=== PATIENT | male | born 1970 | race American Indian/Alaskan Native ===

== ENCOUNTER 2018-02-18 21:00 | Emergency (ER) | payer SELFPAY ==
[2018-02-18 21:15] VITALS: BP 179/98
[2018-02-18] MEDS ORDERED: ASPIRIN PO ONE (21:15)
[2018-02-18 21:33] LABS: Basophils % (Auto) 0.8 % (0.0-1.8); Eosinophils # (Auto) 0.1 K/mm3 (0.0-0.4); Eosinophils % (Auto) 2.3 % (0.0-4.3); Hematocrit 34.8 % (35.5-45.6); Hemoglobin 11.3 gm/dl (11.8-15.2); Lymphocytes # (Auto) 1.5 K/mm3 (1.2-5.4); Lymphocytes % (Auto) 23.9 % (13.4-35.0); Mean Corpuscular HGB Conc 32 % (32-34); Mean Corpuscular Hemoglobin 27 pg (28-32); Mean Corpuscular Volume 84 fl (84-94); Monocytes # (Auto) 0.5 K/mm3 (0.0-0.8); Monocytes % (Auto) 7.5 % (0.0-7.3); Platelet Count 185 K/mm3 (140-440); Red Blood Count 4.13 M/mm3 (3.65-5.03); Red Cell Distribution Width 14.6 % (13.2-15.2)
[2018-02-18 21:58] LABS: Calcium 8.8 mg/dL (8.4-10.2)
[2018-02-18 22:05] LABS: Bilirubin,Urine NEG (Negative); Blood,Urine MOD (Negative); Color,Urine Yellow (Yellow); Mucus,Urine FEW /HPF; Urobilinogen,Urine < 2.0 mg/dL (<2.0)
[2018-02-18 22:18] LABS: Chol/HDL Ratio 7.26 %
--- NOTE | 2018-02-21 14:38 | ED Elopement Review ---
ED Pt Elopement review - Results review Lab results: Laboratory Tests 02/18/18 02/18/18 02/18/18 21:17 21:17 21:31 WBC 6.1 RBC 4.13 Hgb 11.3 L Hct 34.8 L MCV 84 MCH 27 L MCHC 32 RDW 14.6 Plt Count 185 Lymph % (Auto) 23.9 [place] % (Auto) 7.5 H Eos % (Auto) 2.3 Baso % (Auto) 0.8 Lymph # 1.5 [place] # 0.5 Eos # 0.1 Baso # 0.0 Seg Neutrophils % 65.5 Seg Neutrophils # 4.0 Sodium 138 Potassium 4.2 Chloride 98.3 Carbon Dioxide 27 Anion Gap 17 BUN 25 H Creatinine 1.8 H Estimated GFR 50 BUN/Creatinine Ratio 14 Glucose 214 H Calcium 8.8 Troponin T 0.048 H Triglycerides 301 H Cholesterol 298 H LDL Cholesterol Direct 186 H HDL Cholesterol 41 Cholesterol/HDL Ratio 7.26 Urine Color Yellow Urine Turbidity Clear Urine pH 5.0 Ur Specific [place] 1.017 Urine Protein 100 mg/dl Urine Glucose (UA) 50 Urine Ketones Neg Urine Blood Mod Urine Nitrite Neg Urine Bilirubin Neg Urine Urobilinogen < 2.0 Ur Leukocyte Esterase Neg Urine WBC (Auto) 3.0 Urine RBC (Auto) 9.0 Urine Mucus Few - Call Back decision Pt Call Back Decision: Call pt to return to ED [facility]
== END 2018-02-18 21:31 | disposition left against medical advice (07) ==
LOC: ED 21:00
DX: R07.9 Chest pain, unspecified (principal); Z53.21 Procedure and treatment not carried out due to patient leaving prior to being seen by health care provider
CPT/HCPCS: 36415; 80048; 80061; 81001; 84484; 85025; 93005; 93010

== ENCOUNTER 2018-11-20 03:34 | Inpatient (IN) | payer OTHER ==
[2018-11-20 03:56] LABS: Basophils # (Auto) 0.1 K/mm3 (0.0-0.1); Basophils % (Auto) 1.1 % (0.0-1.8); Eosinophils # (Auto) 0.6 K/mm3 (0.0-0.4); Eosinophils % (Auto) 10.3 % (0.0-4.3); Hematocrit 34.6 % (35.5-45.6); Hemoglobin 11.5 gm/dl (11.8-15.2); Lymphocytes # (Auto) 1.2 K/mm3 (1.2-5.4); Lymphocytes % (Auto) 20.9 % (13.4-35.0); Mean Corpuscular HGB Conc 33 % (32-34); Mean Corpuscular Volume 83 fl (84-94); Monocytes # (Auto) 0.5 K/mm3 (0.0-0.8); Monocytes % (Auto) 8.3 % (0.0-7.3); Platelet Count 150 K/mm3 (140-440); Red Blood Count 4.19 M/mm3 (3.65-5.03); Red Cell Distribution Width 15.7 % (13.2-15.2)
[2018-11-20] MEDS ORDERED: NITRO-BID 2% TP ONE ×2 (03:56→04:00)
--- NOTE | 2018-11-20 03:58 | XRay Report ---
FINAL REPORT EXAM: XR CHEST 1V AP HISTORY: Chest Pain TECHNIQUE: A portable upright view the chest was obtained. FINDINGS: There are sternotomy sutures. The heart size is normal. There are no infiltrates or congestion. Pleur al fluid is not seen. The bones and soft tissues are well maintained. IMPRESSION: No acute cardiopulmonary process.
[2018-11-20 04:08] LABS: INR 0.9 (0.87-1.13)
--- NOTE | 2018-11-20 04:08 | Emergency Department Report ---
ED Chest Pain HPI - General Chief Complaint: Chest Pain Stated Complaint: CHEST PAIN/HIGH BP Time Seen by Provider: 11/20/18 03:39 Source: patient, EMS, old records reviewed (patient was admitted here in April 2018 with pneumonia and chest pain. He is subsequently transferred to family for CABG after Cardiac cath) Mode of arrival: Stretcher Limitations: No Limitations - History of Present Illness Initial Comments: 47-year-old male with a past medical history sarcoidosis, CHF, diabetes, CABG 2, hypertension, and renal insufficiency presents to the hospital complaining of chest pain 3 days. Patient complains of intermittent left-sided throbbing c hest pain became more constant today. Rate is 6/10 intensity. Wrist with movement and palpation. Patient has had a cough for several days. Productive white sputum with associated wheezing/sob. No reports of fever, calf tenderness, or leg edema. Patient is currently incarcerated. He received an aspirin at the prison and 2 nitroglycerin in route to the hospital. Severity scale (0 -10): 9 - Related Data Previous Rx's Medication Instructions Recorded Last Taken Type ALBUTEROL NEB's [Proventil 0.083% 2.5 mg IH Q4HRT PRN #30 nebu 05/08/18 Unknown Rx NEBS] Acetaminophen [Acetaminophen TAB] 650 mg PO Q4H PRN #30 tablet 05/08/18 Unknown Rx Aspirin [Aspirin TAB] 325 mg PO QDAY #30 tablet 05/08/18 Unknown Rx AtorvaSTATin [Lipitor] 80 mg PO QHS #30 tablet 05/08/18 Unknown Rx Clopidogrel [Plavix] 75 mg PO QDAY #30 tablet 05/08/18 Unknown Rx Enoxaparin [Lovenox] 40 mg SUB-Q QHS #30 syringe 05/08/18 Unknown Rx Ezetimibe [Zetia] 10 mg PO QDAY #30 tablet 05/08/18 Unknown Rx ISOSORBIDE MONOnitrate [Imdur ER] 60 mg PO QDAY #30 tablet 05/08/18 Unknown Rx Lispro Insulin [Humalog] 0 unit SUB-Q Q6HR units 05/08/18 Unknown Rx Metoprolol [Lopressor TAB] 100 mg PO BID #60 tablet 05/08/18 Unknown Rx amLODIPine [Norvasc] 10 mg PO QDAY #30 tablet 05/08/18 Unknown Rx hydrALAZINE [Apresoline TAB] 50 mg PO Q8HR #90 tablet 05/08/18 Unknown Rx methylPREDNISolone Sod Suc 60 mg IV Q8HR #1 vial 05/08/18 Unknown Rx [Solu-MEDROL] Allergies Allergy/AdvReac Type Severity Reaction Status Date / Time No Known Allergies Allergy Verified 02/19/18 01:25 Heart Score - HEART Score History: Slightly suspicious EKG: Non-specific Age: 45-65 Risk factors: > 3 risk factors or hx of atherosclerotic disease Troponin: 1-3x normal limit HEART Score: 5 ED Review of Systems ROS: Stated complaint: CHEST PAIN/HIGH BP Other details as noted in HPI ED Past Medical Hx - Past Medical History Hx Hypertension: Yes Hx Heart Attack/AMI: Yes (2015 4 stents) Hx Congestive Heart Failure: No Hx Diabetes: Yes Hx Asthma: No Hx COPD: No Additional medical history: sarcodosis - Surgical History Hx Coronary Stent: Yes (2015) Additional Surgical History: 4 stents 2015, hemorrhage retinal bilateral - Social History Smoking Status: Smoker, Current Status Unknown - Medications Home Medications: Home Medications Medication Instructions Recorded Confirmed Last Taken Type ALBUTEROL NEB's [Proventil 0.083% 2.5 mg IH Q4HRT PRN #30 nebu 05/08/18 Unknown Rx NEBS] Acetaminophen [Acetaminophen TAB] 650 mg PO Q4H PRN #30 tablet 05/08/18 Unknown Rx Aspirin [Aspirin TAB] 325 mg PO QDAY #30 tablet 05/08/18 Unknown Rx AtorvaSTATin [Lipitor] 80 mg PO QHS #30 tablet 05/08/18 Unknown Rx Clopidogrel [Plavix] 75 mg PO QDAY #30 tablet 05/08/18 Unknown Rx Enoxaparin [Lovenox] 40 mg SUB-Q QHS #30 syringe 05/08/18 Unknown Rx Ezetimibe [Zetia] 10 mg PO QDAY #30 tablet 05/08/18 Unknown Rx ISOSORBIDE MONOnitrate [Imdur ER] 60 mg PO QDAY #30 tablet 05/08/18 Unknown Rx Lispro Insulin [Humalog] 0 unit SUB-Q Q6HR units 05/08/18 Unknown Rx Metoprolol [Lopressor TAB] 100 mg PO BID #60 tablet 05/08/18 Unknown Rx amLODIPine [Norvasc] 10 mg PO QDAY #30 tablet 05/08/18 Unknown Rx hydrALAZINE [Apresoline TAB] 50 mg PO Q8HR #90 tablet 05/08/18 Unknown Rx methylPREDNISolone Sod Suc 60 mg IV Q8HR #1 vial 05/08/18 Unknown Rx [Solu-MEDROL] ED Physical Exam - General Limitations: No Limitations ED Course Vital Signs 11/20/18 11/20/18 11/20/18 03:35 03:37 03:48 Temperature 97.7 F Pulse Rate 84 80 84 Respiratory 13 16 Rate Blood Pressure 187/103 Blood Pressure 187/103 177/93 [Right] O2 Sat by Pulse 99 100 Oximetry 11/20/18 11/20/18 11/20/18 03:59 04:00 04:30 Temperature Pulse Rate 84 78 82 Respiratory 14 15 Rate Blood Pressure 177/93 177/93 155/90 Blood Pressure [Right] O2 Sat by Pulse 100 100 Oximetry 11/20/18 04:34 Temperature Pulse Rate 82 Respiratory 15 Rate Blood Pressure Blood Pressure 155/90 [Right] O2 Sat by Pulse 99 Oximetry MARIA LUISA score - Maria Luisa Score Age > 65: (0) No Aspirin use within the Past 7 Days: (1) Yes 3 or more CAD Risk Factors: (1) Yes 2 or more Angina events in past 24 hrs: (1) Yes Known CAD with more than 50% Stenosis: (0) No Elevated Cardiac Markers: (1) Yes ST Deviation Greater than 0.5mm: (0) No MARIA LUISA Score: 4 ED Medical Decision Making - Lab Data Result diagrams: 11/20/18 03:44 11/20/18 03:44 Lab Results 11/20/18 11/20/18 11/20/18 Range/Units 03:44 03:44 03:44 WBC 5.6 (4.5-11.0) K/mm3 RBC 4.19 (3.65-5.03) M/mm3 Hgb 11.5 L (11.8-15.2) gm/dl Hct 34.6 L (35.5-45.6) % MCV 83 L (84-94) fl MCH 28 (28-32) pg MCHC 33 (32-34) % RDW 15.7 H (13.2-15.2) % Plt Count 150 (140-440) K/mm3 Lymph % (Auto) 20.9 (13.4-35.0) % [place] % (Auto) 8.3 H (0.0-7.3) % Eos % (Auto) 10.3 H (0.0-4.3) % Baso % (Auto) 1.1 (0.0-1.8) % Lymph # 1.2 (1.2-5.4) K/mm3 [place] # 0.5 (0.0-0.8) K/mm3 Eos # 0.6 H (0.0-0.4) K/mm3 Baso # 0.1 (0.0-0.1) K/mm3 Seg Neutrophils % 59.4 (40.0-70.0) % Seg Neutrophils # 3.3 (1.8-7.7) K/mm3 PT 12.5 (12.2-14.9) Sec. INR 0.90 (0.87-1.13) APTT 23.9 L (24.2-36.6) Sec. Sodium 138 (137-145) mmol/L Potassium 5.1 H (3.6-5.0) mmol/L Chloride 102.5 (98-107) mmol/L Carbon Dioxide 26 (22-30) mmol/L Anion Gap 15 mmol/L BUN 18 (9-20) mg/dL Creatinine 1.7 H (0.8-1.5) mg/dL Estimated GFR 53 ml/min BUN/Creatinine Ratio 11 % Glucose 152 H (75-100) mg/dL Calcium 9.0 (8.4-10.2) mg/dL Troponin T 0.056 H (0.00-0.029) ng/mL Triglycerides 97 (2-149) mg/dL Cholesterol 80 (50-199) mg/dL LDL Cholesterol Direct 28 L (50-130) mg/dL HDL Cholesterol 35 L (40-59) mg/dL Cholesterol/HDL Ratio 2.28 % - EKG Data -: EKG Interpreted by Me EKG shows normal: sinus rhythm (80), ST-T waves (no stemi) - EKG Data When compared to previous EKG there are: no significant change - Medical Decision Making I suspect the patient's pain is muscular skeletal in nature and intermittent shortness of breath related to wheezes and sarcoidosis. No infiltrate on chest x-ray. Patient has mild troponin elevation likely secondary to chronic renal insufficiency indicated stable compared to baseline. EKG does not show any acute changes. Given his significant cardiac history he'll be admitted to hospital for further workup and observation - Differential Diagnosis sarcoidosis, musculoskeletal pain, [place], pneumonia Critical Care Time: No Critical care attestation.: If time is entered above; I have spent that time in minutes in the direct care of this critically ill patient, excluding procedure time. ED Disposition Clinical Impression: Chest pain, Cough, Sarcoidosis, Uncontrolled hypertension, CRI (chronic renal insufficiency) Disposition: OP ADMIT IP TO THIS HOSP Is pt being admited?: Yes Condition: Stable Time of Disposition: 04:41 (Dr Salazar/hosp)
[2018-11-20 04:09] LABS: Partial Thromboplastin Time 23.9 Sec. (24.2-36.6)
[2018-11-20 04:52] LABS: Chol/HDL Ratio 2.28 %
[2018-11-20] MEDS ORDERED: APRESOLINE IV ONE (05:43)
[2018-11-20] MEDS ORDERED: PERCOCET 5/325 PO PRN (06:04)
[2018-11-20] MEDS ORDERED: D50W (25GM) Syringe IV PRN (06:04)
[2018-11-20] MEDS ORDERED: TYLENOL PO PRN (06:04)
[2018-11-20] MEDS ORDERED: SODIUM CHLORIDE FLUSH SYRINGE 10 ML IV PRN (06:04)
[2018-11-20] MEDS ORDERED: ZOFRAN IV PRN (06:04)
--- NOTE | 2018-11-20 06:08 | History and Physical Report ---
History of Present Illness Date of examination: 11/20/18 History of present illness: 47-year-old man with a history of hypertension, coronary artery disease, diabetes, sarcoidosis comes emergency room with complaints of chest pain that started Sunday Pain is in the left chest and epigastric area which he describes a throbbing pain constant, intensity 5/10, no radiation, relief with pain medication given in the ER. Admits to diaphoresis , palpitation, no shortness of breath, nausea. Review of systems Constitutional: no weight loss, chills, fever Ears, eyes, nose, mouth and throat: no nasal congestion, no nasal discharge, no sinus pressure, no vision change, no red eye. Neck: No neck pain or rigidity. Cardiovascular: +palpitations Respiratory: no cough, shortness of breath Gastrointestinal: no abdominal pain hematochezia Genitourinary : no frequency , no hematuria Musculoskeletal: no joint swelling or muscle ache Integumentary: no rash, no pruritis Neurological: no parathesias, no numbness, no focal weakness Endocrine: no cold or heat intolerance, no polyuria or polydipsia Hematologic/Lymphatic: no easy bruising, no easy bleeding, no gland swelling Allergic/Immunologic: no urticaria, no angioedema. PAST MEDICAL HISTORY: hypertension, coronary artery disease, diabetes, sarcoidosis PAST SURGICAL HISTORY: CABG SOCIAL HISTORY: Denies alcohol, tobacco, drugs FAMILY HISTORY: Hypertension Medications and Allergies Allergies Allergy/AdvReac Type Severity Reaction Status Date / Time No Known Allergies Allergy Verified 02/19/18 01:25 Home Medications Medication Instructions Recorded Confirmed Last Taken Type ALBUTEROL NEB's [Proventil 0.083% 2.5 mg IH Q4HRT PRN #30 nebu 05/08/18 Unknown Rx NEBS] Acetaminophen [Acetaminophen TAB] 650 mg PO Q4H PRN #30 tablet 05/08/18 Unknown Rx Aspirin [Aspirin TAB] 325 mg PO QDAY #30 tablet 05/08/18 Unknown Rx AtorvaSTATin [Lipitor] 80 mg PO QHS #30 tablet 05/08/18 Unknown Rx Clopidogrel [Plavix] 75 mg PO QDAY #30 tablet 05/08/18 Unknown Rx Enoxaparin [Lovenox] 40 mg SUB-Q QHS #30 syringe 05/08/18 Unknown Rx Ezetimibe [Zetia] 10 mg PO QDAY #30 tablet 05/08/18 Unknown Rx ISOSORBIDE MONOnitrate [Imdur ER] 60 mg PO QDAY #30 tablet 05/08/18 Unknown Rx Lispro Insulin [Humalog] 0 unit SUB-Q Q6HR units 05/08/18 Unknown Rx Metoprolol [Lopressor TAB] 100 mg PO BID #60 tablet 05/08/18 Unknown Rx amLODIPine [Norvasc] 10 mg PO QDAY #30 tablet 05/08/18 Unknown Rx hydrALAZINE [Apresoline TAB] 50 mg PO Q8HR #90 tablet 05/08/18 Unknown Rx methylPREDNISolone Sod Suc 60 mg IV Q8HR #1 vial 05/08/18 Unknown Rx [Solu-MEDROL] Active Meds: Active Medications Acetaminophen (Tylenol) 650 mg PO Q4H PRN PRN Reason: Pain MILD(1-3)/Fever >100.5/TOLLIVER Dextrose (D50w (25gm) Syringe) 50 ml IV PRN PRN PRN Reason: Hypoglycemia Enoxaparin Sodium (Lovenox) 30 mg SUB-Q QDAY [facility] Insulin Human Lispro (Humalog) 0 unit SUB-Q ACHS [facility]; Protocol Ondansetron HCl (Zofran) 4 mg IV Q8H PRN PRN Reason: Nausea And Vomiting Oxycodone/Acetaminophen (Percocet 5/325) 1 tab PO Q6H PRN PRN Reason: Pain, Moderate (4-6) Sodium Chloride (Sodium Chloride Flush Syringe 10 Ml) 10 ml IV BID [facility] Sodium Chloride (Sodium Chloride Flush Syringe 10 Ml) 10 ml IV PRN PRN PRN Reason: LINE FLUSH Exam - Physical Exam Narrative exam: General Apperance: The patient lying in bed, breathing comfortable HEENT: Normocephalic, atraumatic. Pupils equally round and reactive to light, EOMI, no sclericterus or JVD or thyromegaly or nodule. , no carotid bruit, m ucous membranes moist, no exudate or erythema Heart: S1-S2, regular is rhythm Lungs: Clear to auscultation bilaterally, breathing comfortable Abdomen: Positive bowel sounds, soft, nontender, nondistended, no organomegaly Extremities: No edema cyanosis clubbing Skin: no rash, nodule, warm and dry Neuro: cranial nerves 2-12 intact, speech is fluent, motor/sensory intact - Constitutional Vitals: Temp Pulse Resp BP Pulse Ox 97.7 F 82 15 189/102 99 11/20/18 03:35 11/20/18 04:34 11/20/18 04:34 11/20/18 05:47 11/20/18 04:34 Results - Labs CBC & Chem 7: 11/20/18 03:44 11/20/18 03:44 Labs: Abnormal lab results 11/20/18 11/20/18 11/20/18 Range/Units 03:44 03:44 03:44 Hgb 11.5 L (11.8-15.2) gm/dl Hct 34.6 L (35.5-45.6) % MCV 83 L (84-94) fl RDW 15.7 H (13.2-15.2) % [place] % (Auto) 8.3 H (0.0-7.3) % Eos % (Auto) 10.3 H (0.0-4.3) % Eos # 0.6 H (0.0-0.4) K/mm3 APTT 23.9 L (24.2-36.6) Sec. Potassium 5.1 H (3.6-5.0) mmol/L Creatinine 1.7 H (0.8-1.5) mg/dL Glucose 152 H (75-100) mg/dL Troponin T 0.056 H (0.00-0.029) ng/mL LDL Cholesterol Direct 28 L (50-130) mg/dL HDL Cholesterol 35 L (40-59) mg/dL - Imaging and Cardiology EKG: image reviewed Chest x-ray: report reviewed Assessment and Plan Assessment Unstable angina Coronary artery disease Hypertension Diabetes Sarcoidosis Plan Admit medicine Check cardiac enzymes, consult cardiology Restart outpatient medications, Percocet ,DVT prophylaxis
[2018-11-20 07:01] LABS: Creatine Kinase MB 6.7 ng/mL (0.0-4.0)
[2018-11-20] MEDS: HumaLOG SUB-Q SCH ×2 (07:05→13:55)
[2018-11-20] MEDS ORDERED: LOPRESSOR PO SCH (08:00)
[2018-11-20] MEDS ORDERED: NORVASC PO SCH (10:00)
[2018-11-20] MEDS ORDERED: LOVENOX SUB-Q SCH (10:00)
[2018-11-20] MEDS ORDERED: SODIUM CHLORIDE FLUSH SYRINGE 10 ML IV SCH (10:00)
[2018-11-20] MEDS ORDERED: PLAVIX PO SCH (10:00)
[2018-11-20] MEDS ORDERED: NORVASC ONE (10:21)
[2018-11-20] MEDS ORDERED: PLAVIX ONE (10:21)
[2018-11-20] MEDS ORDERED: LOVENOX SUB-Q ONE (10:22)
[2018-11-20 11:27] VITALS: BP 136/85
[2018-11-20] MEDS ORDERED: ZETIA PO SCH (12:00)
[2018-11-20 12:34] LABS: Creatine Kinase MB 6.7 ng/mL (0.0-4.0)
--- NOTE | 2018-11-20 13:27 | Consultation ---
Addendum entered and electronically signed by AKIRA LASSITER MD 11/20/18 18:15: His chest pain is atypical. There is some pleuritic component, but especially musculoskeletal component with reproducible tenderness which is same as his presenting complaint. Original Note: History of Present Illness Consult date: 11/20/18 Requesting physician: SUSAN KHANNA Consult reason: chest pain History of present illness: The pt is a 47 YO male with a past medical history of CAD s/p CABG x 2 (HARLEY to LAD, saphenous to distal RCA) in 04/2018, HTN, HLP, DM, CKD, sarcoidosis. He has been seen by our practice on prior hospitalizations but has not been compliant with OP follow up. He is currently incarcerated. He presented with complaints of chest pain since last Sunday. He also reports some nasal congestion, fever and productive cough which also began Sunday. He initially noted chest pain while coughing and then the chest pain became constant. He describes the pain as a midsternal aching which is highly reproducible with palpation of the sternum. Past History Past Medical History: CAD, diabetes, hypertension, hyperlipidemia Past Surgical History: CABG Medications and Allergies Allergies Allergy/AdvReac Type Severity Reaction Status Date / Time No Known Allergies Allergy Verified 02/19/18 01:25 Home Medications Medication Instructions Recorded Confirmed Last Taken Type amLODIPine [Norvasc] 10 mg PO QDAY #30 tablet 05/08/18 11/20/18 Unknown Rx Metoprolol Tartrate 25 mg PO BID 11/20/18 11/20/18 Unknown History metFORMIN [Glucophage] 500 mg PO BID 11/20/18 11/20/18 Unknown History Active Meds: Active Medications Acetaminophen (Tylenol) 650 mg PO Q4H PRN PRN Reason: Pain MILD(1-3)/Fever >100.5/TOLLIVER Amlodipine Besylate (Norvasc) 10 mg PO QDAY [facility] Last Admin: 11/20/18 10:25 Dose: 10 mg Documented by: Atorvastatin Calcium (Lipitor) 80 mg PO QHS [facility] Clopidogrel Bisulfate (Plavix) 75 mg PO QDAY [facility] Last Admin: 11/20/18 10:25 Dose: 75 mg Documented by: Dextrose (D50w (25gm) Syringe) 50 ml IV PRN PRN PRN Reason: Hypoglycemia Ezetimibe (Zetia) 10 mg PO QDAY@1200 [facility] Enoxaparin Sodium (Lovenox) 40 mg SUB-Q QDAY@1000 [facility] Hydralazine HCl (Apresoline) 50 mg PO Q8HR [facility] Insulin Human Lispro (Humalog) 0 unit SUB-Q ACHS [facility]; Protocol Last Admin: 11/20/18 07:05 Dose: Not Given Documented by: Metoprolol Tartrate (Lopressor) 100 mg PO BID@0800,1700 [facility] Last Admin: 11/20/18 08:06 Dose: 100 mg Documented by: Ondansetron HCl (Zofran) 4 mg IV Q8H PRN PRN Reason: Nausea And Vomiting Oxycodone/Acetaminophen (Percocet 5/325) 1 tab PO Q6H PRN PRN Reason: Pain, Moderate (4-6) Last Admin: 11/20/18 08:30 Dose: 1 tab Documented by: Sodium Chloride (Sodium Chloride Flush Syringe 10 Ml) 10 ml IV BID [facility] Sodium Chloride (Sodium Chloride Flush Syringe 10 Ml) 10 ml IV PRN PRN PRN Reason: LINE FLUSH Review of Systems Constitutional: fever, chills, no weight loss, no weight gain, no sweats Ears, nose, mouth and throat: nasal congestion, no ear pain, no nose pain, no sinus pressure, no sinus pain Cardiovascular: chest pain, dyspnea on exertion, no orthopnea, no palpitations, no rapid/irregular heart beat, no edema, no syncope, no lightheadedness, no shortness of breath, no paroxysmal nocturnal dyspnea, no leg edema Respiratory: cough with sputum, dyspnea on exertion, congestion, pain (with coughing), no wheezing Gastrointestinal: no abdominal pain, no nausea, no vomiting, no diarrhea, no constipation, no change in bowel habits Genitourinary Male: no dysuria, no hematuria, no flank pain, no discharge, no urinary frequency, no urinary hesitancy Musculoskeletal: no neck stiffness, no neck pain, no shooting arm pain, no arm numbness/tingling, no low back pain, no shooting leg pain Integumentary: no rash, no pruritis, no redness, no sores, no wounds Neurological: no head injury, no paralysis, no weakness, no parathesias, no numbness, no tingling, no seizures, no syncope Psychiatric: no anxiety Endocrine: no cold intolerance, no heat intolerance Hematologic/Lymphatic: no easy bruising, no easy bleeding Allergic/Immunologic: no urticaria, no wheezing Physical Examination Vital Signs Temp Pulse Resp BP Pulse Ox 97.7 F 84 13 187/103 99 11/20/18 03:35 11/20/18 03:35 11/20/18 03:35 11/20/18 03:35 11/20/18 03:35 General appearance: no acute distress HEENT: Positive: PERRL, Normocephaly, Mucus Membranes Moist Neck: Positive: neck supple, trachea midline Cardiac: Positive: Reg Rate and Rhythm, S1/S2 Lungs: Positive: Decreased Breath Sounds Neuro: Positive: Grossly Intact Abdomen: Positive: Soft. Negative: Tender Skin: Negative: Rash, Wound Musculoskeletal: No Pain Extremities: Absent: edema Results 11/20/18 03:44 11/20/18 03:44 Cardiac Enzymes 11/20/18 11/20/18 Range/Units 06:16 11:56 CK-MB (CK-2) 6.7 H 6.7 H (0.0-4.0) ng/mL Coagulation 11/20/18 Range/Units 03:44 PT 12.5 (12.2-14.9) Sec. INR 0.90 (0.87-1.13) APTT 23.9 L (24.2-36.6) Sec. Lipids 11/20/18 Range/Units 03:44 Triglycerides 97 (2-149) mg/dL Cholesterol 80 (50-199) mg/dL HDL Cholesterol 35 L (40-59) mg/dL Cholesterol/HDL Ratio 2.28 % CBC 11/20/18 Range/Units 03:44 WBC 5.6 (4.5-11.0) K/mm3 RBC 4.19 (3.65-5.03) M/mm3 Hgb 11.5 L (11.8-15.2) gm/dl Hct 34.6 L (35.5-45.6) % Plt Count 150 (140-440) K/mm3 Lymph # 1.2 (1.2-5.4) K/mm3 [place] # 0.5 (0.0-0.8) K/mm3 Eos # 0.6 H (0.0-0.4) K/mm3 Baso # 0.1 (0.0-0.1) K/mm3 Comprehensive Metabolic Panel 11/20/18 Range/Units 03:44 Sodium 138 (137-145) mmol/L Potassium 5.1 H (3.6-5.0) mmol/L Chloride 102.5 (98-107) mmol/L Carbon Dioxide 26 (22-30) mmol/L BUN 18 (9-20) mg/dL Creatinine 1.7 H (0.8-1.5) mg/dL Glucose 152 H (75-100) mg/dL Calcium 9.0 (8.4-10.2) mg/dL - Imaging and Cardiology Echo: report reviewed (04/2018: mild to mod LVH, EF 40%, mild MR, mild TR) Cardiac cath: report reviewed (04/2018: severe multivessel CAD, EF 40-45%, tx for CABG) EKG: report reviewed, image reviewed EKG interpretations - Telemetry EKG Rhythm: Sinus Rhythm - EKG Sinus rhythms and dysrhythmias: sinus rhythm Assessment and Plan Currently stable cardiac status. Chest pain appears pleuritic in nature. No plans for additional cardiac workup at this time. Will continue to monitor. The patient has been seen in conjunction with Dr. Lassiter who agrees with the assessment and plan of care. - Patient Problems (1) Chest pain Current Visit: Yes Status: Acute (2) Upper respiratory infection Current Visit: Yes Status: Acute (3) Elevated troponin Current Visit: Yes Status: Acute (4) CAD (coronary artery disease) Current Visit: Yes Status: Chronic Qualifiers: Coronary Disease-Associated Artery/Lesion type: unspecified vessel or lesion type [place] vs. transplanted heart: [place] heart Associated angina: angina presence unspecified Qualified Code(s): I25.10 - Atherosclerotic heart disease of [place] coronary artery without angina pectoris (5) S/P CABG (coronary artery bypass graft) Current Visit: Yes Status: Chronic (6) HTN (hypertension) Current Visit: Yes Status: Chronic (7) Diabetes Current Visit: Yes Status: Chronic (8) CKD (chronic kidney disease) Current Visit: Yes Status: Chronic (9) History of sarcoidosis Current Visit: Yes Status: Chronic
[2018-11-20] MEDS ORDERED: APRESOLINE PO SCH (14:00)
--- NOTE | 2018-11-20 15:50 | Event Note ---
Discharge notes 47-year-old man who was in police custody. Presents with chest pain. Patient has a well-known history of hypertension. He states that he was not getting his blood pressure medication in the shared custody. He was seen by cardiology, no further workup or testing was recommended. Chest pain was most likely due to hypertensive urgency. The patient was advised to take his blood pressure meds as recommended by his doctor. Diagnoses Chest pain due to hypertensive urgency
[2018-11-21] MEDS ORDERED: LOVENOX SUB-Q SCH (10:00)
[2018-11-21] MEDS ORDERED: BABY ASPIRIN PO SCH (10:00)
== END 2018-11-20 17:25 | DRG 305 ==
LOC: ED 03:34 → SUATTDRO 03:34 → 4A 06:04 → EEVIPCON 06:04
PROVIDERS: ADMIT Internal Medicine; ATTEND Internal Medicine
DX: I16.0 Hypertensive urgency (principal); I25.110 Atherosclerotic heart disease of native coronary artery with unstable angina pectoris; E11.22 Type 2 diabetes mellitus with diabetic chronic kidney disease; I12.9 Hypertensive chronic kidney disease with stage 1 through stage 4 chronic kidney disease, or unspecified chronic kidney disease; D86.9 Sarcoidosis, unspecified; N18.9 Chronic kidney disease, unspecified; Z87.01 Personal history of pneumonia (recurrent); Z95.1 Presence of aortocoronary bypass graft; Z79.899 Other long term (current) drug therapy; Z82.49 Family history of ischemic heart disease and other diseases of the circulatory system; I25.2 Old myocardial infarction; Z95.5 Presence of coronary angioplasty implant and graft
CPT/HCPCS: 36415; 71045; 80048; 80061; 82550; 82553; 82962; 84484; 85025; 85379; 85610; 85730; 93005; 93010; 96374; G0378; J0360; J1650